=== PATIENT | female | born 1950 | race Caucasian/White ===

== ENCOUNTER 2021-12-11 10:47 | Emergency (ER) | payer MEDICARE, SELFPAY ==
[2021-12-11 11:07] VITALS: BP 193/80; PULSE 67; RESP 18; TEMP 36.9; O2SAT 98; BMI 27.1
--- NOTE | 2021-12-11 11:22 | DI.CT.S_ITS ---
PROCEDURE: CT ABDOMEN PELVIS W CON INDICATIONS: ostomy hernia pain no output TECHNIQUE: After the administration of IV contrast, axial sections were acquired from the lung bases to the pubic symphysis. Coronal and sagittal reformats were performed. For radiation dose reduction, the following was used: automated exposure control, adjustment of mA and/or kV according to patient size. COMPARISON: None. FINDINGS: Image quality: Excellent. Lung bases: Unremarkable. Heart: No significant findings. ABDOMEN: Liver: Incidental note is made of focal fatty infiltration adjacent to the falciform ligament, which is not regarded to be pathologic. The liver is normal in size and demonstrates no suspicious lesions. Gallbladder: Unremarkable. Biliary ducts: Unremarkable. Pancreas: Unremarkable. Spleen: Unremarkable. Adrenal Glands: Unremarkable. Kidneys and Ureters: The left kidney is unremarkable. The right kidney demonstrates areas cortical scarring and moderate atrophy. Stomach and Bowel: Distal colectomy change is seen, with a left lower quadrant colostomy. No dilated loops of small bowel are seen. The stomach is relatively decompressed. Peritoneum: No abnormal intraperitoneal fluid. No free air. Ventral Wall: Along the colostomy, there is herniation of distal colon, with moderate distention with stool. There is a mild to moderate amount of stool seen within the colon more proximal to this site. Abdominal Nodes: No retroperitoneal or mesenteric adenopathy by size criteria. Vessels: Aorta and inferior vena cava are normal in size. PELVIS: Pelvic Organs: Unremarkable. Bladder: Unremarkable. Pelvic Nodes: No enlarged lymph nodes. Miscellaneous: No inguinal hernias are seen. Bones: There is a remote L1 anterior wedge deformity, with 70% loss of height anteriorly. Age-appropriate bony degenerative changes are seen. There is apparent spina bifida seen inferiorly, with a fluid collection posteriorly. IMPRESSION: There is distal colectomy with left lower quadrant colostomy. Along the left colostomy site, there is herniated distal colon, with distention. Given history, this is attributed to distal colonic obstruction within the hernia. The more proximal colon demonstrates [id number] stool. Right kidney atrophy with areas of cortical scarring. Please correlate with prior episodes of infarction or infection. Incidental note is made of: Remote L1 anterior wedge deformity Spina bifida with a posterior fluid collection, which may represent a myelocele. Note: Case discussed by telephone Dr. Rivera at 11:38 a.m. [place] time on December 11, 2021. Dictated by: William De Jesus M.D. on 12/11/2021 at 11:33 Approved by: William De Jesus M.D. on 12/11/2021 at 11:41
--- NOTE | 2021-12-11 11:22 | ED.ABDPAIN ---
HPI - Abdominal Pain General Chief Complaint: Abdominal Pain Stated Complaint: Thinks bowel obstruction Time Seen by Provider: 12/11/21 11:09 Source: patient Mode of arrival: Ambulatory History of Present Illness HPI narrative: Patient is a 71-year-old female history of spina bifida and bowel prolapse presenting today with up pain. She has had an ostomy and multiple hernias along with multiple abdominal surgeries. She says around 6:00 p.m. she started noticing some hardness around her ostomy site and hernia. She has not had any output from her ostomy. She has been nauseous with vomiting but currently not now. No fever or chills. [place] Related Data Allergies Allergy/AdvReac Type Severity Reaction Status Date / Time sulfamethoxazole Allergy Verified 12/11/21 11:11 [From Bactrim] tetracycline Allergy Verified 12/11/21 11:11 trimethoprim [From Bactrim] Allergy Verified 12/11/21 11:11 latex AdvReac Verified 12/11/21 11:11 Review of Systems Review of Systems Narrative: GENERAL: Denies chills, fatigue, malaise, fever, sweats, travel HEENT: Denies sinus pain, ear pain, sore throat, difficulty swallowing, neck pain RESPIRATORY: Denies dyspnea, cough, wheezing, hemoptysis, sputum. CARDIOVASCULAR: Denies chest pain, palpitations, orthopnea, edema GASTROINTESTINAL: See HPI : Denies dysuria, frequency, incontinence, hematuria, urinary retention, flank pain. MUSCULOSKELETAL: Denies weakness, joint pain, or bony pain SKIN: No rash, no erythema, no pruritus NEUROLOGIC: Denies weakness, dizziness, headache, numbness, change in speech, confusion PSYCHIATRIC: No concerning psychosocial issues. 12 point review of systems is negative except for those stated above and HPI Exam Initial Vital Signs Initial Vital Signs: Vital Signs Temperature 98.4 F 12/11/21 11:07 Pulse Rate 67 12/11/21 11:07 Respiratory Rate 18 12/11/21 11:07 Blood Pressure 193/80 H 12/11/21 11:07 Pulse Oximetry 98 12/11/21 11:07 Oxygen Delivery Method 12/11/21 11:07 GENERAL: Alert pleasant 71-year-old female and in no acute distress. HEENT: Head atraumatic,EOMI, pupils reactive, face symmetric, moist mucous membranes CARDIOVASCULAR: Regular rate and rhythm without murmurs, rubs or gallops. RESPIRATORY: Breath sounds equal bilaterally, no wheezes rales or rhonchi. ABDOMEN: Soft, left lower quadrant ostomy noted there is surrounding hernia hard and not reducible decreased bowel sounds EXTREMITIES: Normal range of motion, no clubbing or edema. Neurovascularly intact NEUROLOGICAL: Alert and oriented x4.Normal gait and speech. SKIN: Warm, dry, no laceration, no petechiae, no rashes or lesions. Course Orders Ordered: ED Orders 12/11/21 13:56 COVID19 -Nasal RAPID/Pre-Proc Stat Discontinued Medications Hydromorphone HCl (Hydromorphone 1 Mg Inj) 1 mg IV NOW ONE Stop: 12/11/21 13:11 Last Admin: 12/11/21 13:59 Dose: 1 mg Documented By: AT Vital Signs Vital signs: Vital Signs - 8 hr 12/11/21 14:30 12/11/21 14:00 Pulse Rate 78 60 Respiratory Rate 18 18 Blood Pressure 135/72 193/80 H Pulse Oximetry 100 99 Oxygen Delivery Method Room Air MDM - Abdominal Pain Lab Data Result diagrams: 12/11/21 11:30 12/11/21 11:30 Labs: Lab Results 12/11/21 12/11/21 12/11/21 Range/Units 11:30 11:30 12:01 WBC 8.6 (4.5-11.0) X10^3/uL RBC 4.63 (4.0-5.2) X10^6/uL Hgb 14.5 (12.0-16.0) g/dL Hct 41.3 (36-46) % MCV 89.2 (80-100) fL MCH 31.3 (26-34) PG MCHC 35.0 (30-36) % RDW 13.4 (11.6-14.8) % Plt Count 240 (150-400) X10^3/uL Neut % (Auto) 79.5 H (50-75) % Lymph % (Auto) 11.2 L (25-40) % Jennings % (Auto) 8.4 (3-14) % Eos % (Auto) 0.4 L (2-4) % Baso % (Auto) 0.5 (0-2) % Neut # (Auto) 6900 (9837-7221) /uL Lymph # (Auto) 1000 L (2972-9638) /uL Jennings # (Auto) 700 (0-900) /uL Eos # (Auto) 0 (0-450) /uL Baso # (Auto) 0 (0-100) /uL Sodium 139 (137-145) mmol/L Potassium 3.5 (3.4-5.1) mmol/L Chloride 107 (98-107) mmol/L Carbon Dioxide 28 (22-32) mmol/L BUN 12 (7-17) mg/dL Creatinine 0.65 (0.52-1.04) mg/dL Estimated GFR > 60 (>60) mL/min BUN/Creatinine Ratio 18.5 (6-22) Glucose 116 H (80-110) mg/dL Lactate 1.0 (0.7-2.1) mmol/L Calcium 8.5 (8.4-10.2) mg/dL Total Bilirubin 0.8 (0.2-1.3) mg/dL AST 24 (14-36) IU/L ALT 16 (<35) IU/L Alkaline Phosphatase 52 (38-126) U/L Total Protein 6.8 (6.3-8.2) g/dL Albumin 3.9 (3.5-5.0) g/dL Globulin 2.9 (1.7-4.1) g/dL Albumin/Globulin Ratio 1.3 (1.0-2.8) Lipase 23 (23-300) U/L SARS-CoV-2 (PCR) (Negative) 12/11/21 Range/Units 13:56 WBC (4.5-11.0) X10^3/uL RBC (4.0-5.2) X10^6/uL Hgb (12.0-16.0) g/dL Hct (36-46) % MCV (80-100) fL MCH (26-34) PG MCHC (30-36) % RDW (11.6-14.8) % Plt Count (150-400) X10^3/uL Neut % (Auto) (50-75) % Lymph % (Auto) (25-40) % Jennings % (Auto) (3-14) % Eos % (Auto) (2-4) % Baso % (Auto) (0-2) % Neut # (Auto) (6663-6706) /uL Lymph # (Auto) (4906-1009) /uL Jennings # (Auto) (0-900) /uL Eos # (Auto) (0-450) /uL Baso # (Auto) (0-100) /uL Sodium (137-145) mmol/L Potassium (3.4-5.1) mmol/L Chloride (98-107) mmol/L Carbon Dioxide (22-32) mmol/L BUN (7-17) mg/dL Creatinine (0.52-1.04) mg/dL Estimated GFR (>60) mL/min BUN/Creatinine Ratio (6-22) Glucose (80-110) mg/dL Lactate (0.7-2.1) mmol/L Calcium (8.4-10.2) mg/dL Total Bilirubin (0.2-1.3) mg/dL AST (14-36) IU/L ALT (<35) IU/L Alkaline Phosphatase (38-126) U/L Total Protein (6.3-8.2) g/dL Albumin (3.5-5.0) g/dL Globulin (1.7-4.1) g/dL Albumin/Globulin Ratio (1.0-2.8) Lipase (23-300) U/L SARS-CoV-2 (PCR) Negative (Negative) Imaging Data CT scan - abdomen/pelvis: Radiologist's Impression: Signed Patient: Omayra Mazariegos MR#: [id number] : 1950 Acct:[id number] Age/Sex: 71 / F Date of Service: 12/11/21 Loc: ED Accession Number: [id number] ?? Procedure: CT abdomen pelvis w con Ordering Provider: Christie Rivera D.O. PROCEDURE:? CT ABDOMEN PELVIS W CON ? INDICATIONS:? ostomy hernia pain no output ? TECHNIQUE:? After the administration of IV contrast, axial sections were acquired from the lung bases to the pubic symphysis.? Coronal and sagittal reformats were performed.? For radiation dose reduction, the following was used:? automated exposure control, adjustment of mA and/or kV according to patient size. ? COMPARISON:? None. ? FINDINGS:? Image quality:? Excellent.? ? Lung bases:? Unremarkable.? ? Heart:? No significant findings. ? ? ABDOMEN: Liver:? Incidental note is made of focal fatty infiltration adjacent to the falciform ligament, which is not regarded to be pathologic.? The liver is normal in size and demonstrates no suspicious lesions. Gallbladder:? Unremarkable.? ? Biliary ducts:? Unremarkable.? ? Pancreas:? Unremarkable.? ? Spleen:? Unremarkable.? ? Adrenal Glands:? Unremarkable.? ? Kidneys and Ureters:? The left kidney is unremarkable.? The right kidney demonstrates areas cortical scarring and moderate atrophy. ? Stomach and Bowel:? Distal colectomy change is seen, with a left lower quadrant colostomy. No dilated loops of small bowel are seen. The stomach is relatively decompressed. Peritoneum:? No abnormal intraperitoneal fluid.? No free air.? ? Ventral Wall:? Along the colostomy, there is herniation of distal colon, with moderate distention with stool.? There is a mild to moderate amount of stool seen within the colon more proximal to this site. ? Abdominal Nodes:? No retroperitoneal or mesenteric adenopathy by size criteria.? Vessels:? Aorta and inferior vena cava are normal in size.? ? PELVIS: Pelvic Organs:? Unremarkable.? ? Bladder:? Unremarkable.? ? Pelvic Nodes: No enlarged lymph nodes.? Miscellaneous: No inguinal hernias are seen. ? ? ? Bones:? There is a remote L1 anterior wedge deformity, with 70% loss of height anteriorly.? Age-appropriate bony degenerative changes are seen.? There is apparent spina bifida seen inferiorly, with a fluid collection posteriorly. ? ? IMPRESSION:? ? There is distal colectomy with left lower quadrant colostomy. ? Along the left colostomy site, there is herniated distal colon, with distention.? Given history, this is attributed to distal colonic obstruction within the hernia.? The more proximal colon demonstrates [id number] stool. ? Right kidney atrophy with areas of cortical scarring.? Please correlate with prior episodes of infarction or infection.? ? ? Incidental note is made of: Remote L1 anterior wedge deformity Spina bifida with a posterior fluid collection, which may represent a myelocele. ? Note: Case discussed by telephone Dr. Rivera at 11:38 a.m. [place] time on December 11, 2021.? ? Dictated by: William De Jesus M.D. on 12/11/2021 at 11:33 ?? MDM Narrative Medical decision making narrative: Patient presents today with hardening of her hernia and no osteo in the output. CT confirms bowel obstruction within the hernia. After dilaudid hernia was quite easily reduced. Patient immediately felt better. Discussion with surgery his at this time okay to be released. Patient was feeling significantly better and quite excited to go on her scheduled whale watch. 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 If unable lot to push it in and make it soft then return to emergency department You were given dilaudid. It may make you nauseous lightheaded and confused. *Continue to take medications as directed *Follow up with your primary care provider in 2-3 days or call [phone] *Return to ER if you should have persistent vomiting increased pain hard any or any new, worsening or concerning symptoms Visit Report Forms: Patient Portal/API
[2021-12-11 11:48] LABS: Add Manual Diff / Slide Review NO; Basophils Absolute Auto 0 /uL (0-100); Basophils Percent Auto 0.5 % (0-2); Eosinophils Absolute Auto 0 /uL (0-450); Eosinophils Percent Auto 0.4 % (2-4); Hematocrit 41.3 % (36-46); Hemoglobin 14.5 g/dL (12.0-16.0); Lymphocytes Absolute Auto 1000 /uL (1100-4500); Lymphocytes Percent Auto 11.2 % (25-40); Mean Corpuscular Hemoglobin 31.3 PG (26-34); Mean Corpuscular Volume 89.2 fL (80-100); Monocytes Absolute Auto 700 /uL (0-900); Monocytes Percent Auto 8.4 % (3-14); Neutrophils Absolute Auto 6900 /uL (1500-7000); Neutrophils Percent Auto 79.5 % (50-75); Platelet Count 240 X10^3/uL (150-400); Red Blood Cell Count 4.63 X10^6/uL (4.0-5.2); Red Cell Distribution Width 13.4 % (11.6-14.8); White Blood Cell Count 8.6 X10^3/uL (4.5-11.0)
[2021-12-11 12:02] LABS: Alanine Aminotransferase 16 IU/L (<35); Albumin 3.9 g/dL (3.5-5.0); Albumin Globulin Ratio 1.3 (1.0-2.8); Alkaline Phosphatase 52 U/L (38-126); Aspartate Aminotransferase 24 IU/L (14-36); BUN Creatinine Ratio 18.5 (6-22); Bilirubin Total 0.8 mg/dL (0.2-1.3); Blood Urea Nitrogen 12 mg/dL (7-17); Calcium 8.5 mg/dL (8.4-10.2); Carbon Dioxide 28 mmol/L (22-32); Chloride 107 mmol/L (98-107); Estimated Glomerular Filt Rate > 60 mL/min (>60); Globulin 2.9 g/dL (1.7-4.1); Glucose 116 mg/dL (80-110); HEMOLYSIS 18 (0-50); Lipase 23 U/L (23-300); Potassium 3.5 mmol/L (3.4-5.1); Sodium 139 mmol/L (137-145); Total Protein 6.8 g/dL (6.3-8.2)
[2021-12-11] MEDS: HYDROMORPHONE 1 MG INJ IV (13:59)
[2021-12-11 14:00] VITALS: BP 193/80; PULSE 60; RESP 18; O2SAT 99
[2021-12-11 14:27] LABS: COVID19 -Nasal RAPID Negative (Negative)
[2021-12-11 14:30] VITALS: BP 135/72; PULSE 78; RESP 18; O2SAT 100
== END 2021-12-11 15:08 | disposition home or self-care (01) ==
PROVIDERS: Emergency Provider Emergency Medicine
DX: K43.5 Parastomal hernia without obstruction or gangrene (principal); Z20.822 Contact with and (suspected) exposure to COVID-19; R03.0 Elevated blood-pressure reading, without diagnosis of hypertension
CPT/HCPCS: 36415; 74177; 80053; 83605; 83690; 85025; 87635; 93005; 93010; 96374; 99284; C9803; J1170; Q9967